=== PATIENT | female | born 1955 | race Caucasian/White ===

== ENCOUNTER → 2017-04-20 | Outpatient (CLI) | payer MEDICARE, OTHER ==
[2017-04-20 08:05] LABS: Basophils % (A) 1 %; CH 31.8; CHCM 33.8; Eosinophils # (A) 0.1 k/uL (0-0.7); Eosinophils % (A) 3 %; HCT 38.7 % (34.0-46.0); HDW 2.42; HGB 13.3 gm/dL (11.4-16.0); Luc # (Auto) 0.08; Luc % (Auto) 3; Lymphocytes # (A) 1.3 k/uL (1.0-4.8); Lymphocytes % (A) 41 %; MCH 32.3 pg (25.0-35.0); MCHC 34.3 g/dL (31.0-37.0); MCV 94.3 fL (80.0-100.0); Mean Platelet Volume 7.3; Monocytes # (A) 0.2 k/uL (0-1.0); Monocytes % (A) 5 %; Neutrophils # (A) 1.5 k/uL (1.3-7.7); Neutrophils % (A) 48 %; WBC 3.2 k/uL (3.8-10.6); WBC (Perox) 3.37
== END | disposition home or self-care (01) ==
LOC: LABWHC1 07:30
PROVIDERS: ATTEND Physician Assistant
DX: R79.89 Other specified abnormal findings of blood chemistry (principal)
CPT/HCPCS: 36415; 85025

== ENCOUNTER → 2017-10-25 | Outpatient (CLI) | payer MEDICARE, OTHER ==
[2017-10-25 09:05] LABS: Basophils % (A) 1 %; CH 31.1; CHCM 33.4; Eosinophils # (A) 0.1 k/uL (0-0.7); Eosinophils % (A) 3 %; HCT 40.7 % (34.0-46.0); HDW 2.49; HGB 13.4 gm/dL (11.4-16.0); Luc % (Auto) 3; Lymphocytes # (A) 1.4 k/uL (1.0-4.8); Lymphocytes % (A) 44 %; MCH 30.8 pg (25.0-35.0); MCHC 32.9 g/dL (31.0-37.0); MCV 93.6 fL (80.0-100.0); Mean Platelet Volume 7.1; Monocytes # (A) 0.2 k/uL (0-1.0); Monocytes % (A) 5 %; Neutrophils # (A) 1.4 k/uL (1.3-7.7); Neutrophils % (A) 43 %; RBC 4.35 m/uL (3.80-5.40); RDW 12.3 % (11.5-15.5); WBC 3.2 k/uL (3.8-10.6); WBC (Perox) 2.99
--- NOTE | 2017-10-25 09:16 | XR ---
EXAMINATION TYPE: XR chest 2V DATE OF EXAM: 10/25/2017 COMPARISON: 08/07/2016 TECHNIQUE: PA and lateral views submitted. HISTORY: Cough FINDINGS: The lungs are clear and there is no pneumothorax, pleural effusion, or focal pneumonia. Postsurgical change overlying the cervical spine and lumbar spine. Arthropathy of the shoulders. IMPRESSION: 1. No acute process.
[2017-10-25 09:22] LABS: ALT 31 U/L (9-52); AST 21 U/L (14-36); Alkaline Phosphatase 76 U/L (38-126); Anion Gap 7 mmol/L; Blood Urea Nitrogen 11 mg/dL (7-17); Calcium 9.5 mg/dL (8.4-10.2); Carbon Dioxide 30 mmol/L (22-30); Chloride 102 mmol/L (98-107); Cholesterol 239 mg/dL (<200); Glucose 94 mg/dL (74-99); HDL Cholesterol 64 mg/dL (40-60); Non-African American GFR(MDRD) >60 (>60 ml/min/1.73 sqM); Potassium 4.6 mmol/L (3.5-5.1); Sodium 139 mmol/L (137-145); Total Bilirubin 0.4 mg/dL (0.2-1.3)
== END | disposition home or self-care (01) ==
LOC: LABWHC1 08:27
PROVIDERS: ATTEND Physician Assistant
DX: R05 Cough (principal); E78.5 Hyperlipidemia, unspecified; Z79.899 Other long term (current) drug therapy
CPT/HCPCS: 36415; 71020; 80053; 80061; 85025

== ENCOUNTER → 2018-02-15 | Outpatient (CLI) | payer MEDICARE, OTHER ==
[2018-02-15 10:26] LABS: Basophils % (A) 1 %; Eosinophils # (A) 0.1 k/uL (0-0.7); Eosinophils % (A) 2 %; HCT 40.1 % (34.0-46.0); Lymphocytes # (A) 1.6 k/uL (1.0-4.8); Lymphocytes % (A) 33 %; MCH 29.8 pg (25.0-35.0); MCHC 32.5 g/dL (31.0-37.0); MCV 91.5 fL (80.0-100.0); Mean Platelet Volume 7.6; Monocytes # (A) 0.2 k/uL (0-1.0); Monocytes % (A) 5 %; Neutrophils # (A) 2.7 k/uL (1.3-7.7); Neutrophils % (A) 58 %; Platelet Count 255 k/uL (150-450); RBC 4.38 m/uL (3.80-5.40); RDW 12.7 % (11.5-15.5); WBC 4.7 k/uL (3.8-10.6)
== END | disposition home or self-care (01) ==
LOC: LABWHC1 10:15
PROVIDERS: ATTEND Physician Assistant
DX: D72.9 Disorder of white blood cells, unspecified (principal)
CPT/HCPCS: 36415; 85025

== ENCOUNTER 2018-03-20 20:18 | Emergency (ER) | payer MEDICARE, OTHER ==
[2018-03-20 20:41] VITALS: RESP 18
[2018-03-20] MEDS ORDERED: DIPH,PERTUS(ACELL)TETVAC-LF 0.5 ML VIAL IM ONE (20:41)
--- NOTE | 2018-03-20 20:59 | ED ---
General Adult HPI - General Chief complaint: Extremity Injury, Upper Stated complaint: Arm injury Time Seen by Provider: 03/20/18 20:43 Source: patient, RN notes reviewed Mode of arrival: ambulatory Limitations: no limitations - History of Present Illness Initial comments: 62-year-old female presents to the emergency department for a chief complaint of right arm injury 1 hour. Patient states she was walking her dog when she fell and her dog pulled her. Patient has a large georgian sherpherd. Patient states she fell on her right side and scraped her right arm. Patient complains of pain in the right hip. Patient also complains of pain in the right arm. Patient denies hitting her head or losing consciousness. Patient's tetanus is not up-to-date. Patient denies any other injuries at this time. Patient has no other complaints at this time including shortness of breath, chest pain, abdominal pain, nausea or vomiting, headache, or visual changes. - Related Data Home Medications Medication Instructions Recorded Confirmed traZODone HCL 150 mg PO HS 03/08/16 08/16/16 FLUoxetine HCL [PROzac] 20 mg PO DAILY 08/10/16 08/16/16 Glucosam/Luis Daniel-Msm1/C/Mani/Bosw 1 tab PO BID 08/10/16 08/16/16 [Glucosamine-Chondroitin Tablet] Hydrocodone/Acetaminophen 1 - 2 tab PO Q6H PRN 08/16/16 08/16/16 [Hydrocodon-Acetaminoph 7.5-325] Previous Rx's Medication Instructions Recorded Docusate [Colace] 100 mg PO BID #60 capsule 08/19/16 HYDROcodone/APAP 7.5-325MG [[place] 1 - 2 each PO Q6HR PRN #90 tab 08/19/16 7.5-325] hydrOXYzine PAMOATE [Vistaril] 25 mg PO TID PRN #60 cap 08/19/16 Cephalexin [Keflex] 500 mg PO Q12HR #20 cap 03/20/18 Cephalexin [Keflex] 500 mg PO Q12HR #20 cap 03/20/18 HYDROcodone/APAP 5-325MG [[place] 1 tab PO Q6HR PRN #10 tab 03/20/18 5-325] Ibuprofen [Motrin] 600 mg PO Q8HR PRN #20 tab 03/20/18 Allergies Allergy/AdvReac Type Severity Reaction Status Date / Time No Known Allergies Allergy Verified 03/20/18 20:38 Review of Systems ROS Statement: Those systems with pertinent positive or pertinent negative responses have been documented in the HPI. ROS Other: All systems not noted in ROS Statement are negative. Past Medical History Past Medical History: Fibromyalgia, Hyperlipidemia, Hypertension, Osteoarthritis (OA) Additional Past Medical History / Comment(s): Spinal stenosis, lumbar radiculopathy, constant nerve pain in back History of Any Multi-Drug Resistant Organisms: None Reported Past Surgical History: Back Surgery, Hysterectomy, Joint Replacement, Orthopedic Surgery, Tonsillectomy, Tubal Ligation Additional Past Surgical History / Comment(s): 08/16/16 posterior lumbar decompression fusion transforaminal lumbar interbody dusion L2-3 and removal hardware L3-4. Other surgical hx: arthroscopy left knee x2, cervical fusion with plate, back sx x2, left knee replacement Past Anesthesia/Blood Transfusion Reactions: No Reported Reaction Additional Past Anesthesia/Blood Transfusion Reaction / Comment(s): jehovah witness-NO BLOOD PRODUCTS. Past Psychological History: Bipolar Smoking Status: Never smoker Past Alcohol Use History: None Reported Past Drug Use History: None Reported - Past Family History Mother Family Medical History: No Reported History General Exam - General Exam Comments Initial Comments: Right arm exam: Patient has a full range of motion of the right arm including the right wrist and right elbow. Patient has tenderness of the medial forearm. Radial pulse 2+ and capillary refill less than 10 seconds. Patient has full strength in the right hand and full abduction and adduction of the digits of the right hand. Sensation intact in the right upper extremity. Right leg exam. Pedal pulse 2+ and capillary refill less than 2 seconds. Sensation intact in the right foot. Patient has limited range of motion of the right hip. Full range of motion of the right knee and ankle. Patient does have some tenderness of the right hip as well. Limitations: no limitations General appearance: alert, in no apparent distress Respiratory exam: Present: normal lung sounds bilaterally. Absent: respiratory distress, wheezes, rales, rhonchi, stridor Cardiovascular Exam: Present: regular rate, normal rhythm, normal heart sounds. Absent: systolic murmur, diastolic murmur, rubs, gallop, clicks Course Vital Signs 03/20/18 03/20/18 20:38 23:18 Temperature 98.1 F 98.2 F Pulse Rate 80 62 Respiratory 18 18 Rate Blood Pressure 164/92 145/86 O2 Sat by Pulse 98 97 Oximetry Procedures - Procedures Initial comment: Body area: Right forearm Laceration length: 6 cm Foreign bodies: Patient had gravel within the tissue. Wound was irrigated thoroughly and cleaned out. Tendon involvement: none Nerve involvement: none Vascular damage: no Anesthesia: local infiltration Local anesthetic: 12 mL 1% lidocaine Preparation: Patient was prepped and draped in the usual sterile fashion. Irrigation solution: saline Irrigation method:saline jet lavage, iodine Skin closure:4-0 Ethilon using sterile technique Number of sutures: 13 Technique: interupted Dressing: antibiotic ointment/ gauze Patient tolerance: Patient tolerated the procedure well with no immediate complications. Medical Decision Making - Medical Decision Making 62-year-old female presents to the emergency department for a chief complaint of right arm pain. Patient states she fell while walking the dog on a gravel road and the dog pulled her. She states she has pain in her right hip and right arm. Patient states it has been painful to walk with her right hip. Patient is not up-to-date on her tetanus. On exam there is a 6 cm laceration along the medial aspect of her right forearm through SQ tissue. There is no acute fracture or dislocation in the right forearm. Multiple radiopaque soft tissue foreign bodies seen. X-ray of the right hip shows no acute fracture or dislocation. Multiple radiopaque soft tissue densities noted. Upon examining of the hip there are gravel densities on the surface of the skin. There is no break in the skin to allow for foreign bodies. Wound was thoroughly irrigated with saline jet lavage and cleaned with iodine. All foreign bodies that could be removed were. Wound was sutured with 13 simple interrupted sutures. Patient was educated to return to the emergency department in 7-10 days to have sutures removed. Patient was also visualized walking on the right hip. Patient was given a tetanus shot in the emergency department. She will follow up with general surgery for possible debridement. She was educated that she needs to watch closely for infection and take Keflex as directed. She will return to the emergency Department if she has any worsening symptoms or signs of infection. Disposition Clinical Impression: Laceration Disposition: HOME SELF-CARE Condition: Good Instructions: Care For Your Stitches (ED), Laceration (ED), Soft Tissue Foreign Body (ED) Additional Instructions: Please take antibiotics as directed. Please take Motrin for pain relief. If pain is severe take [place]. Return to the emergency department if you have any worsening symptoms. Otherwise follow-up with Gen. surgery in 1-2 days. Prescriptions: Cephalexin [Keflex] 500 mg PO Q12HR #20 cap Cephalexin [Keflex] 500 mg PO Q12HR #20 cap HYDROcodone/APAP 5-325MG [[place] 5-325] 1 tab PO Q6HR PRN #10 tab PRN Reason: Pain Ibuprofen [Motrin] 600 mg PO Q8HR PRN #20 tab PRN Reason: Pain Is patient prescribed a controlled substance at d/c from ED?: Yes Referrals: Igor Solis MD [Primary Care Provider] - 1-2 days Debra Paz MD [STAFF PHYSICIAN] - 1-2 days Time of Disposition: 22:57
--- NOTE | 2018-03-20 21:10 | XR ---
EXAMINATION TYPE: XR Hip Complete RT DATE OF EXAM: 03/20/2018 CLINICAL HISTORY: pain TECHNIQUE: AP and frogleg views of the right hip are obtained. COMPARISON: None. FINDINGS: There is no acute fracture/dislocation evident. The joint space appears severely narrowe d. The acetabular lip spurring noted. Subchondral cyst formation evident. Local thickening along the femoral neck may reflect a healed fracture.. Multiple radiopaque soft tissue densities noted reflect soft tissue foreign bodies. Correlate clinically. IMPRESSION: 1. There is no acute fracture or dislocation. 2.Multiple radiopaque soft tissue densities noted reflect soft tissue foreign bodies. Correlate clini roberta. ICD 10 NO FRACTURE, INITIAL EVALUATION
--- NOTE | 2018-03-20 21:18 | XR ---
EXAMINATION TYPE: XR forearm RT DATE OF EXAM: 03/20/2018 CLINICAL HISTORY: pain TECHNIQUE: Frontal and lateral images of the right forearm are obtained. COMPARISON: None. FINDINGS: There is no acute fracture/dislocation evident. The joint spaces appear within normal limi ts. Multiple radiopaque soft tissue foreign bodys seen which may reflect soft tissue gravel. Correlat e clinically. IMPRESSION: There is no acute fracture or dislocation. ICD 10 NO FRACTURE, INITIAL EVALUATION
[2018-03-20] MEDS ORDERED: HYDROcodone/APAP 5-325MG 1 EACH TAB PO STA (22:08)
[2018-03-20] MEDS ORDERED: CEPHALEXIN 500 MG CAP PO STA (23:10)
[2018-03-20 23:19] VITALS: BP 145/86; PULSE 62; TEMP 98.2
== END 2018-03-20 23:19 | disposition home or self-care (01) ==
LOC: EC 20:18
DX: S51.821A Laceration with foreign body of right forearm, initial encounter (principal); L98.9 Disorder of the skin and subcutaneous tissue, unspecified; M25.551 Pain in right hip; F31.9 Bipolar disorder, unspecified; Z79.899 Other long term (current) drug therapy; Z23 Encounter for immunization; W54.1XXA Struck by dog, initial encounter; Y93.K1 Activity, walking an animal
CPT/HCPCS: 12032; 73502; 90471; 90715; 99283

== ENCOUNTER 2018-03-23 20:58 | Emergency (ER) | payer MEDICARE, OTHER ==
[2018-03-23 21:42] VITALS: RESP 18
[2018-03-24] MEDS ORDERED: traMADol 50 MG TAB PO STA (00:36)
[2018-03-24] MEDS ORDERED: VANCOMYCIN IV PER PHARMACY 1 EACH MISC MISCELLANE PRN (00:50)
[2018-03-24] MEDS ORDERED: VANCOMYCIN 1,250 MG in SODIUM CHLORIDE 0.9% 250 ML IVPB STA (00:52)
[2018-03-24 01:05] LABS: Basophils % (A) 1 %; Eosinophils # (A) 0.1 k/uL (0-0.7); Eosinophils % (A) 3 %; HCT 35.8 % (34.0-46.0); HGB 12.2 gm/dL (11.4-16.0); Lymphocytes # (A) 1.5 k/uL (1.0-4.8); Lymphocytes % (A) 36 %; MCH 30.4 pg (25.0-35.0); MCHC 34.1 g/dL (31.0-37.0); MCV 89.4 fL (80.0-100.0); Mean Platelet Volume 7.3; Monocytes # (A) 0.3 k/uL (0-1.0); Monocytes % (A) 6 %; Neutrophils # (A) 2.1 k/uL (1.3-7.7); Neutrophils % (A) 51 %; Platelet Count 187 k/uL (150-450); RBC 4.01 m/uL (3.80-5.40); RDW 12.3 % (11.5-15.5); WBC 4.1 k/uL (3.8-10.6)
[2018-03-24 01:16] LABS: ALT 23 U/L (9-52); AST 22 U/L (14-36); Alkaline Phosphatase 79 U/L (38-126); Anion Gap 10 mmol/L; Blood Urea Nitrogen 9 mg/dL (7-17); Calcium 9.3 mg/dL (8.4-10.2); Carbon Dioxide 30 mmol/L (22-30); Chloride 98 mmol/L (98-107); Glucose 99 mg/dL (74-99); Sodium 138 mmol/L (137-145); Total Bilirubin 0.5 mg/dL (0.2-1.3); Total Protein 6.5 g/dL (6.3-8.2)
--- NOTE | 2018-03-24 02:02 | ED ---
Wound/Laceration HPI - General Chief Complaint: Wound/Laceration Stated Complaint: arm swelling & redness Time Seen by Provider: 03/24/18 00:04 Source: patient Mode of arrival: ambulatory Limitations: no limitations - History of Present Illness Initial Comments: 62-year-old female patient presents to the emergency department today for possible wound infection. Patient states that she explains a fall last Sunday did have a laceration to the right forearm. Patient states she was seen here and did have the laceration repaired. Patient states that she was started on Keflex and has been taking this. Patient states she is taking 3 full days worth. States that today she noticed she has been having some drainage of pus and surrounding redness to the laceration. States that she did see Dr. Cole and he plans to do a surgery for wound clean out on Sunday. Patient denies any fevers, but states she has been having chills. Denies any nausea or vomiting. Patient denies any recent rash, shortness breath, chest pain , abdominal pain, diarrhea, constipation, back pain, numbness, tingling, dizziness, weakness, hematuria, dysuria, urinary urgency, urinary frequency, headache, visual changes, or any other complaints. - Related Data Home Medications Medication Instructions Recorded Confirmed traZODone HCL 150 mg PO HS 03/08/16 08/16/16 FLUoxetine HCL [PROzac] 20 mg PO DAILY 08/10/16 08/16/16 Glucosam/Luis Daniel-Msm1/C/Mani/Bosw 1 tab PO BID 08/10/16 08/16/16 [Glucosamine-Chondroitin Tablet] Hydrocodone/Acetaminophen 1 - 2 tab PO Q6H PRN 08/16/16 08/16/16 [Hydrocodon-Acetaminoph 7.5-325] Previous Rx's Medication Instructions Recorded Docusate [Colace] 100 mg PO BID #60 capsule 08/19/16 HYDROcodone/APAP 7.5-325MG [[place] 1 - 2 each PO Q6HR PRN #90 tab 08/19/16 7.5-325] hydrOXYzine PAMOATE [Vistaril] 25 mg PO TID PRN #60 cap 08/19/16 Cephalexin [Keflex] 500 mg PO Q12HR #20 cap 03/20/18 Cephalexin [Keflex] 500 mg PO Q12HR #20 cap 03/20/18 HYDROcodone/APAP 5-325MG [[place] 1 tab PO Q6HR PRN #10 tab 03/20/18 5-325] Ibuprofen [Motrin] 600 mg PO Q8HR PRN #20 tab 03/20/18 Levofloxacin [Levaquin] 500 mg PO DAILY #10 tab 03/24/18 Allergies Allergy/AdvReac Type Severity Reaction Status Date / Time No Known Allergies Allergy Verified 03/23/18 21:42 Review of Systems ROS Statement: Those systems with pertinent positive or pertinent negative responses have been documented in the HPI. ROS Other: All systems not noted in ROS Statement are negative. Past Medical History Past Medical History: Fibromyalgia, Hyperlipidemia, Hypertension, Osteoarthritis (OA) Additional Past Medical History / Comment(s): Spinal stenosis, lumbar radiculopathy, constant nerve pain in back History of Any Multi-Drug Resistant Organisms: None Reported Past Surgical History: Back Surgery, Hysterectomy, Joint Replacement, Orthopedic Surgery, Tonsillectomy, Tubal Ligation Additional Past Surgical History / Comment(s): 08/16/16 posterior lumbar decompression fusion transforaminal lumbar interbody dusion L2-3 and removal hardware L3-4. Other surgical hx: arthroscopy left knee x2, cervical fusion with plate, back sx x2, left knee replacement Past Anesthesia/Blood Transfusion Reactions: No Reported Reaction Additional Past Anesthesia/Blood Transfusion Reaction / Comment(s): jehovah witness-NO BLOOD PRODUCTS. Past Psychological History: Bipolar Smoking Status: Never smoker Past Alcohol Use History: None Reported Past Drug Use History: None Reported - Past Family History Mother Family Medical History: No Reported History General Exam Limitations: no limitations General appearance: alert, in no apparent distress, other (This is a well- developed, well-nourished adult female patient in no acute distress. Vital signs upon presentation are temperature 99.2F, pulse 75, respirations 18, blood pressure 124/74, pulse ox 93% on room air.) Eye exam: Present: normal appearance, PERRL, EOMI. Absent: scleral icterus, conjunctival injection, periorbital swelling ENT exam: Present: normal exam, normal oropharynx, mucous membranes moist Respiratory exam: Present: normal lung sounds bilaterally. Absent: respiratory distress, wheezes, rales, rhonchi, stridor Cardiovascular Exam: Present: regular rate, normal rhythm, normal heart sounds. Absent: systolic murmur, diastolic murmur, rubs, gallop, clicks Extremities exam: Present: full ROM, normal capillary refill, other (Patient has 8 cm laceration to the right forearm. This is well approximated with sutures. Patient does have evidence of purulent drainage and surrounding erythema. She has no axillary lymphadenopathy. Wound is warm to touch.). Absent: normal inspection, tenderness, pedal edema, joint swelling, calf tenderness Neurological exam: Present: alert, oriented X3, CN II-XII intact Psychiatric exam: Present: normal affect, normal mood Skin exam: Present: warm, dry, intact, normal color. Absent: rash Course Vital Signs 03/23/18 03/24/18 21:39 03:30 Temperature 99.0 F 98.9 F Pulse Rate 75 65 Respiratory 18 18 Rate Blood Pressure 124/74 127/80 O2 Sat by Pulse 93 L 97 Oximetry Medical Decision Making - Medical Decision Making 62-year-old female patient presented to the emergency department today for evaluation of infected right arm laceration. Physical examination did reveal purulent drainage with surrounding cellulitis. Labs reviewed and were unremarkable. White blood cell count was normal. Patient had been taking Keflex for 3 days. Patient was given a dose of IV vancomycin here in the department. She will be discharged home we will change her Keflex to Levaquin. Upon completion of the vancomycin patient had scalp itching. We did administer 50 mg of Benadryl IM, 125 mg of site Medrol IM, and 20 mg of Pepcid by mouth. Patient did have improvement of symptoms prior to discharge. She denied any trouble breathing, throat swelling, or other symptoms. No evidence of rash. She is instructed to follow-up with her primary care physician as well as Dr. Cole for further evaluation of the wound. Return parameters were discussed in detail. She verbalizes understanding and agrees with this plan. - Lab Data Result diagrams: 03/24/18 00:47 03/24/18 00:47 Lab Results 03/24/18 03/24/18 Range/Units 00:47 00:47 WBC 4.1 (3.8-10.6) k/uL RBC 4.01 (3.80-5.40) m/uL Hgb 12.2 (11.4-16.0) gm/dL Hct 35.8 (34.0-46.0) % MCV 89.4 (80.0-100.0) fL MCH 30.4 (25.0-35.0) pg MCHC 34.1 (31.0-37.0) g/dL RDW 12.3 (11.5-15.5) % Plt Count 187 (150-450) k/uL Neutrophils % 51 % Lymphocytes % 36 % Monocytes % 6 % Eosinophils % 3 % Basophils % 1 % Neutrophils # 2.1 (1.3-7.7) k/uL Lymphocytes # 1.5 (1.0-4.8) k/uL Monocytes # 0.3 (0-1.0) k/uL Eosinophils # 0.1 (0-0.7) k/uL Basophils # 0.0 (0-0.2) k/uL Sodium 138 (137-145) mmol/L Potassium 4.0 (3.5-5.1) mmol/L Chloride 98 (98-107) mmol/L Carbon Dioxide 30 (22-30) mmol/L Anion Gap 10 mmol/L BUN 9 (7-17) mg/dL Creatinine 0.60 (0.52-1.04) mg/dL Est GFR (CKD-EPI)AfAm >90 (>60 ml/min/1.73 sqM) Est GFR (CKD-EPI)NonAf >90 (>60 ml/min/1.73 sqM) Glucose 99 (74-99) mg/dL Calcium 9.3 (8.4-10.2) mg/dL Total Bilirubin 0.5 (0.2-1.3) mg/dL AST 22 (14-36) U/L ALT 23 (9-52) U/L Alkaline Phosphatase 79 (38-126) U/L Total Protein 6.5 (6.3-8.2) g/dL Albumin 4.0 (3.5-5.0) g/dL Disposition Clinical Impression: Cellulitis, Wound infection Disposition: HOME SELF-CARE Condition: Good Instructions: Care For Your Stitches (ED), Wound Infection (ED) Additional Instructions: Take medications as directed. Follow-up with your primary care physician and orthopedic physician as soon as possible. Return here immediately for any new, worsening, or concerning symptoms. Prescriptions: Levofloxacin [Levaquin] 500 mg PO DAILY #10 tab Is patient prescribed a controlled substance at d/c from ED?: No Referrals: Igor Solis MD [Primary Care Provider] - 1-2 days Time of Disposition: 02:30
[2018-03-24] MEDS ORDERED: FAMOTIDINE 20 MG TAB PO STA (03:20)
[2018-03-24] MEDS ORDERED: diphenhydrAMINE 50 MG/ML 1 ML VIAL IM STA (03:20)
[2018-03-24] MEDS: methylPREDNISolone SOD SUCCI 125 MG/2 ML VIAL IM ONE ×2 (03:25→03:27)
[2018-03-24 03:31] VITALS: BP 127/80; PULSE 65; TEMP 98.9
== END 2018-03-24 03:50 | disposition home or self-care (01) ==
LOC: EC 20:58
DX: L03.113 Cellulitis of right upper limb (principal); T81.4XXA Infection following a procedure, initial encounter; B99.8 Other infectious disease; F31.9 Bipolar disorder, unspecified; Z79.899 Other long term (current) drug therapy; Z87.39 Personal history of other diseases of the musculoskeletal system and connective tissue
CPT/HCPCS: 36415; 80053; 85025; 87040; 87070; 87205; 99283; 96365; 96366; 96372 ×2; J3370; J1200; J2930

== ENCOUNTER → 2018-07-23 | Outpatient (CLI) | payer MEDICARE, OTHER ==
--- NOTE | 2018-07-23 11:50 | XR ---
EXAMINATION TYPE: XR cervical spine limited DATE OF EXAM: 07/23/2018 COMPARISON: NONE HISTORY: Pain TECHNIQUE: 3 views are submitted. FINDINGS: There are no compression deformities. The prevertebral soft tissue structures are within normal limi ts. Postsurgical changes are seen involving the lower cervical spine. Complete loss of disc space an d hypertrophic spurring anteriorly at C3-4 and C4-C5. Facet arthropathy at all levels. Suspect neural foraminal encroachment at all levels. 2 mm anterolisthesis of C2 on C3. Odontoid view nondiagnostic. Odontoid appears intact on the lateral view. IMPRESSION: 1. Postsurgical change with multilevel severe degenerative disc disease and facet arthropathy and hyp ertrophic spurring suspected bilateral foraminal encroachment at multiple levels correlate clinically .
--- NOTE | 2018-07-23 11:51 | XR ---
EXAM TYPE: LUMBAR SPINE X RAY SERIES COMPARISON: 08/16/2016 HISTORY: Pain TECHNIQUE: 3 views are submitted. FINDINGS: There is postsurgical changes involving levels L3-S1. Alignment is near-anatomic. No compression defo rmities. Degenerative disc disease at T12-L1. IMPRESSION: 1. Multilevel postsurgical change appears in near anatomic alignment. 2. Degenerative disc disease thoracolumbar junction.
--- NOTE | 2018-07-23 11:53 | XR ---
EXAMINATION TYPE: XR pelvis AP view DATE OF EXAM: 07/23/2018 COMPARISON: NONE HISTORY: Pain Postsurgical change involving the lower lumbar spine and severe arthropathy of the right hip. Chronic appearing deformity of the right inferior pubic ramus suggestive previous trauma. This was not prese nt on 03/20/2018 x-ray of the right hip. Arthropathy of the left hip noted. IMPRESSION: 1. There is sclerosis and deformity involving the right inferior pubic ramus new from the x-ray 018. Most likely posttraumatic on a remote basis. Correlate clinically and if necessary with CT scan. 2. Severe arthropathy of the right hip with complete loss of joint space. 3. Moderate to severe arthropathy of the left hip
== END | disposition home or self-care (01) ==
LOC: RADXRMAIN 11:04
PROVIDERS: ATTEND Chiropractor
DX: M51.36 Other intervertebral disc degeneration, lumbar region (principal); M16.12 Unilateral primary osteoarthritis, left hip; M89.8X8 Other specified disorders of bone, other site; M95.5 Acquired deformity of pelvis; M99.01 Segmental and somatic dysfunction of cervical region; Z98.890 Other specified postprocedural states
CPT/HCPCS: 72040; 72100; 72170

== ENCOUNTER → 2018-09-05 | Outpatient (CLI) | payer MEDICARE, OTHER ==
--- NOTE | 2018-09-05 15:55 | US ---
EXAMINATION TYPE: US thyroid st tissue head/neck DATE OF EXAM: 09/05/2018 COMPARISON: NONE CLINICAL HISTORY: E05.90 HYPERTHYROIDISM. GLAND SIZE: Right Lobe: 3.7 x 1.1 x 1.6 cm Overall Parenchyma: homogenous Left Lobe: 4.6 x 1.2 x 1.6 cm Overall Parenchyma: homogeneous Isthmus Thickness: 0.2 cm NODULES RIGHT: # of nodules measured on right: 1 1. 0.6 X 0.3 x 0.5 cm mixed nodule at the mid pole with well-defined margins; . This nodule is wid er than tall and shows intranodular vascularity. Prior size: no prior LEFT: # of nodules measured on left: 0 esophagus demonstrated incidentally ISTHMUS: # of nodules measured in the isthmus: 0 Bilateral neck scanned, no evidence of lymphadenopathy. IMPRESSION: Subcentimeter thyroid nodule.
== END | disposition home or self-care (01) ==
LOC: RADUSWWP 14:47
PROVIDERS: ATTEND Family Medicine
DX: E04.1 Nontoxic single thyroid nodule (principal); E05.90 Thyrotoxicosis, unspecified without thyrotoxic crisis or storm
CPT/HCPCS: 76536

== ENCOUNTER → 2019-01-16 | Outpatient (CLI) | payer MEDICARE, OTHER ==
[2019-01-16 17:39] LABS: Thyroid Peroxidase Antibodies 29.2 U/mL (0.0-60.0)
[2019-01-16 17:47] LABS: T4, Free (Free Thyroxine) 1.2 ng/dL (0.80-1.80)
== END | disposition home or self-care (01) ==
LOC: LABWHC1 09:16
PROVIDERS: ATTEND Internal Medicine Endocrinology, Diabetes & Metabolism
DX: R94.6 Abnormal results of thyroid function studies (principal)
CPT/HCPCS: 36415; 84439; 84443; 84445; 84480; 86376

== ENCOUNTER 2019-04-28 11:34 | Inpatient (IN) | payer MEDICARE, OTHER ==
[2019-04-22 12:47] VITALS: BMI 27.5
[~2019-04-28 11:34] MED LIST: ACETAMINOPHEN TAB 500 MG TAB PO ONE; DEXAMETHASONE SOD PHOSPHATE 10 MG/ML 1 ML VIAL IV ONE; LIDOCAINE 1% 20 ML VIAL (10MG/ML) FOR IV START INTRADERMA PRN; MELOXICAM 7.5 MG TAB PO ONE; MIDAZOLAM 2 MG/2 ML VIAL IV PRN; ONDANSETRON 4 MG/2 ML VIAL IVP ONE; TRANEXAMIC ACID 1,000 MG in SODIUM CHLORIDE 0.9% 100 ML IVPB ONE; ceFAZolin IN SWFI 2 GM/20 ML SYRINGE IVP ONE
[2019-04-28] MEDS ORDERED: LIDOCAINE 1% 20 ML VIAL (10MG/ML) FOR IV START INTRADERMA ONE (11:55)
[2019-04-28] MEDS: LACTATED RINGERS 1,000 ML IV SCH ×2 (12:11→16:57)
[2019-04-28] MEDS ORDERED: ROPIVACAINE 246.25 MG, EPINEPHrine 0.5 MG, KETOROLAC 30 MG, cloNIDine HCL/PF 80 MCG, WA... MISCELLANE ONE ×5 (12:21)
[2019-04-28] MEDS ORDERED: MIDAZOLAM 2 MG/2 ML VIAL ONE (12:24)
[2019-04-28] MEDS ORDERED: GLYCOPYRROLATE 0.2 MG/ML 2 ML VIAL ONE (12:24)
[2019-04-28] MEDS ORDERED: SODIUM CHLORIDE 0.9% 100 ML BAG ONE (12:24)
[2019-04-28] MEDS ORDERED: PROPOFOL 10 MG/ML 20 ML VIAL IV ONE (12:24)
[2019-04-28] MEDS ORDERED: fentaNYL (PF) 50 MCG/ML 2 ML AMP ONE (12:24)
[2019-04-28] MEDS ORDERED: LIDOCAINE 1% INJ 10MG/ML (20 ML MDV) ONE (12:24)
[2019-04-28] MEDS ORDERED: TRANEXAMIC ACID 1,000 MG/10 ML VIAL ONE (12:24)
[2019-04-28] MEDS ORDERED: NEOSTIGMINE 1 MG/ML 10 ML VIAL ONE (12:24)
[2019-04-28] MEDS ORDERED: PHENYLEPHRINE-0.9% NACL SYG 1 MG/10 ML SYRINGE ONE (12:24)
[2019-04-28] MEDS ORDERED: SUCCINYLCHOLINE CHLORIDE 100 MG/5 ML SYR IV ONE (12:24)
[2019-04-28] MEDS ORDERED: ROCURONIUM BROMIDE 10 MG/ML 10 ML VIAL IV ONE (12:24)
[2019-04-28] MEDS ORDERED: ceFAZolin 3,000 MG in SODIUM CHLORIDE 0.9% IRRIGATIO 3,000 ML IRRIGATION ONE (12:30)
[2019-04-28] MEDS ORDERED: THROMBIN (BOVINE) 5,000 UNIT VIAL TOPICAL ONE (13:40)
[2019-04-28] MEDS ORDERED: GELATIN SPONGE,ABSORB (SMALL) 1 EACH SPONGE TOPICAL ONE ×2 (13:40)
[2019-04-28] MEDS ORDERED: SODIUM CHLORIDE 0.9% IVPB ONE (13:45)
[2019-04-28] MEDS ORDERED: TRANEXAMIC ACID IVPB ONE (13:45)
[2019-04-28] MEDS ORDERED: TRANEXAMIC ACID 1,000 MG in SODIUM CHLORIDE 0.9% 100 ML IVPB ONE (13:45)
[2019-04-28] MEDS ORDERED: TRANEXAMIC ACID 1,000 MG/10 ML VIAL IRRIGATION ONE (14:05)
[2019-04-28] MEDS ORDERED: LACTATED RINGERS 1,000 ML IV ONE (14:32)
--- NOTE | 2019-04-28 14:53 | P.OP ---
Date of Procedure: 04/28/19 Procedure(s) Performed: PREOPERATIVE DIAGNOSIS: Right hip severe osteoarthritis POSTOPERATIVE DIAGNOSIS: Right hip severe osteoarthritis OPERATION: Right hip total replacement arthroplasty (uncemented implantation with ceramic on polyethylene articulation). ANESTHESIA: Spinal ESTIMATED BLOOD LOSS: 800 ml. HEAD SHIPPER: Alfreda May PA-C (assistance with: patient positioning, retraction, exposure, hemostasis, leg positioning, implantation, irrigation, closure, dressing) COMPLICATIONS: None apparent. COMPONENTS IMPLANTED: Alin continuum acetabular cup with cluster holes; continuum longevity 15 elevated liner, 32 mm id; Alin VerSys Fiber Metal stem; Biolox ceramic 32 mm femoral head with no neck length extension INDICATIONS: Stacey is a 63 year old female with significant end-stage osteoarthritis involving the right hip and commensurate severe symptoms. She is a Sabianism. She presents to the operating room today for total hip replacement. I have discussed the steps of the operation as well as potential risks and complications as being inclusive of, but not limited to: Leading, infection, scarring, discomfort, or vessel and/or nerve damage, need for further surgery, loosening, dislocation, wear, osteolysis, limb length inequality, fracture, blood clot, pulmonary embolism, , persistent limp, and other risks. The patient is aware these risks and wishes to proceed with surgery and has signed a consent form. PROCEDURE: After appropriate consent was obtained, the patient was taken to the operating room and placed in supine position. Spinal anesthetic was administered and after confirmation of adequate anesthesia, the patient was placed into the lateral decubitus position with the right side up. Care was taken to make sure that all pressure points were adequately padded and he was stabilized to the table with a [place] hip positioner. The right hip was prepped and draped in the usual aseptic fashion using a combination of ChloraPrep and alcohol. Ioban drape was used for the case and the patient received intravenous antibiotics prior to the incision. "Time out" was called, confirming patient identity, side, procedure, availability of implants and administration of antibiotics. 1 gram of IV tranexamic acid was given. The incision was created directly over the greater trochanter and carried slightly posteriorly for a posterior approach to the hip. The incision was then deepened down to subcutaneous tissue and fascia sondra. This patient had extensive vasculature in the subcutaneous tissues requiring slow meticulous hemostasis. Topical tranexamic acid was called for in anticipation of performing a wound soak at the conclusion of the case. Fascia sondra was split in line with the incision and split proximally along the fibers of the gluteus rizwan. The underlying fibers of the muscle were teased apart using finger dissection and bleeding vessels were picked up and coagulated. Retractor was then placed posteriorly consisting of a blunt Jess. The short external rotators and capsule were exposed using good visualization of the attachment of the external rotators to the femur was established. The short external rotators and capsule were released using electrocautery from their femoral attachments. Bleeding was encountered at this point in the area just proximal to the lesser trochanter. Gel-foam soaked with thrombin along with cautery and pressure was utilized to gain hemostasis. The Aquamantis device was also utilized for hemostasis. A hockey stick shaped incision was created in the capsule. Joint fluid was evacuated and the patient's hip was able to be dislocated fairly easily. Once the above procedures were completed, no further significant soft tissue bleeding was encountered for the remainder of the case. The patient's femoral head was severely arthritic with eburnated bone present and a 360 degrees mahan of osteophytes. The femoral neck cut was created approximately 1 cm superior to the lesser trochanter using a reciprocating saw. The patient's femoral canal, once exposed, bled extensively requiring bone wax to tamponade the flow and efficient placement of the femoral component after preparation of the acetabulum. The femoral head and neck fragment was removed and attention was then directed to the acetabulum. An anterior acetabular retractor was applied followed by posterior retraction of the capsule with a Meyerding retractor. This afforded good visualization into the acetabular cavity. Soft tissue was removed and residual cartilage within the acetabular vault was removed using a curette. Labrum was removed using a long-handled knife. Attention was then directed to reaming. The size 44 reamer was used first, followed by increasing increments until the final size reamer was used. Please see the implantation sheet for exact sizes used for the components. Once the final reamer had been utilized to expand the socket it was noted that there was a good supportive bone around the acetabular socket and no further reaming needed to be performed. The trial the same size as the last reamer used was then impacted into the acetabular vault and found to have good fit. The acetabular component, one size (2mm) greater than the trial was then called for. The cluster holes were placed posteriorly and the component was impacted in a position of approximately 40 degrees abduction and 20 degrees anteversion. This matched this patient's [place] anteversion and it was noted that the cup had excellent stability without need for additional screw fixation. Attention was then directed to the acetabular liner. The anteversion and abduction angle of the component was noted to be very good. A 15 elevated liner was used and locked into position with the elevation posterior superior. Osteophytes around the posterior and inferior aspect of the acetabulum were trimmed as necessary to prevent any impingement. Attention was then directed back to the proximal femur. Retractors were placed around the proximal femur and box osteotome was used followed by canal finder and trochanteric reamer. Cylindrical reaming was performed. Progressive broaching was then performed starting with a #10 broach and progressing final size, in a position of 15 degrees anteversion. [place] anteversion was within 5 degrees of stem position. The final size broach had excellent fit and fill of the patient's metaphysis and diaphysis. Trial reduction was then performed starting with size 32 mm femoral head and various neck combination of stability, limb length equality, and soft tissue tension. Trial components were then removed. The canal was lavaged and the final size femoral stem component was impacted into position. The implant fit very well and had excellent stability. The femoral head was then impacted onto the Love taper. Blood and debris were removed from the acetabular component and the hip was then reduced and checked for stability, limb length and soft tissue tension. These parameters found to be satisfactory, the wound was then thoroughly irrigated with normal saline. Final hemostasis was obtained using electrocautery and IV tranexamic acid, 1 g given at the time of prepping and draping, and another 1 g given at the time of closure. In addition, wound soak for 2 minutes with 2 grams TXA in 50 cc of saline was utilized prior to closure. Local anesthetic solution consisting of ropivacaine with epinephrine, clonidine, and ketorolac was also used throughout the case targeting the capsule, fascia, and skin. Closure of the capsule was performed meticulously using #3 Vicryl suture. Four [id number] sutures were placed in the posterior capsule along with repair of the external rotators. The fascia sondra was then repaired using combination of #3 Vicryl suture in interrupted fashion and Quill and running fashion. 2-0 Vicryl suture was used for the subcutaneous tissues and 3-0 Quill for the skin. Dermabond or Steri- Strips were then applied. The patient tolerated the procedure well. Hemo-Q performed by the reservation clerk during closure showed a hemoglobin of 10.3. There were no complications and the wound bed was dry and there was no need for drain placement. Sterile dressing was then applied and the patient was carefully removed from the operating room table, placed on the stretcher and was taken to the recovery room in stable condition. Sponge and needle counts were correct.
[2019-04-28] MEDS ORDERED: NALOXONE 0.4 MG/ML 1 ML VIAL IV PRN (15:03)
[2019-04-28] MEDS ORDERED: ONDANSETRON 4 MG/2 ML VIAL IVP PRN (15:03)
[2019-04-28] MEDS ORDERED: ACETAMINOPHEN TAB 325 MG TAB PO PRN (15:03)
[2019-04-28] MEDS ORDERED: HYDROcodone/APAP 5-325MG 1 EACH TAB PO PRN (15:03)
[2019-04-28] MEDS ORDERED: MAGNESIUM HYDROXIDE 2,400 MG/10 ML CUP PO PRN (15:03)
[2019-04-28] MEDS: fentaNYL (PF) 50 MCG/ML 2 ML AMP IV PRN ×2 (15:04→15:20)
--- NOTE | 2019-04-28 15:27 | XR ---
Limited right hip HISTORY: Status post right anterior hip replacement Single frontal view of the right hip Patient is status post right hip arthroplasty. There is anatomic alignment. Lucency is present in the soft tissues. IMPRESSION: Interval follow-up.
[2019-04-28] MEDS: HYDROcodone/APAP 5-325MG 1 EACH TAB PO PRN ×2 (16:56→22:55)
--- NOTE | 2019-04-28 17:38 | P.CONS ---
History of Present Illness - Reason for Consult Consult date: 04/28/19 Medical management Requesting physician: Tiago Cole - Chief Complaint Right hip pain - History of Present Illness 63-year-old female with no past medical history presents to [facility] for elective right total hip replacement arthroplasty for severe right hip osteoarthritis. [facility] physicians has been consulted for medical management of this patient. Patient was seen and examined. No acute events overnight. Patient reports no immediate postoperative complications. She complains of right hip pain that is 8 out of 10 in severity. Pain is aggravated with movement. Patient denies any headaches, lower extremity edema, nausea, vomiting, fever, cough, chest pain, shortness of breath, changes in appetite or weight. She denies any dizziness, numbness/weakness/tingling of the extremities. Patient states that she has not been able to urinate since her surgery. Patient has not had a bowel movement neither has she passed gas. Review of Systems Pertinent positives and negatives as discussed in HPI, a complete review of systems was performed and all other systems are negative. Past Medical History Past Medical History: Fibromyalgia, Hyperlipidemia, Hypertension, Osteoarthritis (OA) Additional Past Medical History / Comment(s): Spinal stenosis, lumbar radiculopathy, chronic back pain, hx. pelvic fx. 2018 History of Any Multi-Drug Resistant Organisms: None Reported Past Surgical History: Back Surgery, Hysterectomy, Joint Replacement, Orthopedic Surgery, Tonsillectomy, Tubal Ligation Additional Past Surgical History / Comment(s): 08/16/16 posterior lumbar decompression fusion transforaminal lumbar interbody dusion L2-3 and removal hardware L3-4. Other surgical hx: arthroscopy left knee x2, cervical fusion with plate, back sx x2, right foot surg., left knee replacement Past Anesthesia/Blood Transfusion Reactions: No Reported Reaction Additional Past Anesthesia/Blood Transfusion Reaction / Comm: jehovah witness-NO BLOOD PRODUCTS. Past Psychological History: Bipolar Additional Psychological History / Comment(s): Pt resides with her zainab. She uses no assistive device. She drives. Smoking Status: Never smoker Past Alcohol Use History: Occasional Past Drug Use History: None Reported - Past Family History Mother Family Medical History: No Reported History Medications and Allergies Home Medications Medication Instructions Recorded Confirmed Type Acetaminophen/Diphenhydramine 500 mg PO Q8HR PRN 04/28/19 04/28/19 History [Tylenol PM Extra Strength] Aspirin 325 mg PO DAILY #1 tab 04/28/19 Rx HYDROcodone/APAP 5-325MG [[place] 1 - 2 each PO Q4-6H PRN #50 tab 04/28/19 Rx 5-325] Ibuprofen [Motrin] 800 mg PO TID PRN 04/28/19 04/28/19 History Sennosides-Docusate Sodium 1 tab PO BID #60 tablet 04/28/19 Rx [Senokot-S] traZODone HCL [Desyrel] 100 mg PO HS 04/28/19 04/28/19 History Allergies Allergy/AdvReac Type Severity Reaction Status Date / Time vancomycin Allergy Itching Verified 04/28/19 14:21 Physical Exam Vitals: Vital Signs Temp Pulse Resp BP Pulse Ox 04/28/19 15:39 59 L 16 102/59 99 04/28/19 15:30 60 16 100/56 99 04/28/19 15:15 61 16 96/53 97 04/28/19 15:00 78 16 104/56 100 04/28/19 14:53 98.2 F 96 16 111/60 96 04/28/19 11:54 98.6 F 73 16 140/81 97 Intake and Output 04/28/19 04/28/19 04/28/19 06:59 14:59 22:59 Intake Total 1701 Output Total 800 Balance 901 Intake: IV 1701 Output: Estimated Blood Loss 800 General: [non toxic], [no distress], [appears at stated age] Derm: [warm], [dry] Head: [atraumatic], [normocephalic], [symmetric] Eyes: [EOMI], [no lid lag], [anicteric sclera] Mouth: [no lip lesion], [mucus membranes moist] Cardiovascular: [S1S2 reg], [no murmur], [positive DP pulse bilateral], Lungs: [CTA bilateral], [no rhonchi, no rales] , [no accessory muscle use] Abdominal: [soft], [ nontender to palpation], [no guarding], [no appreciable organomegaly] Ext: [no gross muscle atrophy], [no edema], [right hip dressing clean dry and intact] Neuro: [no focal neuro deficits] Psych: [Alert], [oriented], [appropriate affect] Assessment and Plan Assessment: Assessment and Plan Severe right hip osteoarthritis post right hip replacement POD 0 Hyperlipidemia Management as per orthopedic surgery. Pain management with [place] or fentanyl. 2 doses of cefazolin. Continue lactated Ringer's at 100 mL/h. Follow CBC in the morning. Plans for home with rehab. September 2018 lipid panel shows total cholesterol 252 and LDL of 172. Plans: Dietary modification. Follow-up with PCP. Thank you for allowing us to participate in the care of this patient. Please call with any additional questions or concerns. DVT prophylaxis: [SCD boots] Discussed with: [Patient] Anticipated discharge: [Home] Anticipated discharge place: [1-2 days] A total of [30] minutes was spent on the care of this complex patient more than 50% of the time was spent in counseling and care coordination.
[2019-04-28] MEDS: ceFAZolin IN SWFI 2 GM/20 ML SYRINGE IVP SCH ×2 (17:50→22:55)
[2019-04-28] MEDS: HYDROmorphone 0.5 MG/0.5 ML SYRINGE IVP PRN (18:46)
[2019-04-28] MEDS: SENNOSIDES-DOCUSATE SODIUM 1 EACH TAB PO SCH (20:55)
[2019-04-29] MEDS: LACTATED RINGERS 1,000 ML IV SCH ×4 (00:27→12:02)
[2019-04-29] MEDS: HYDROcodone/APAP 5-325MG 1 EACH TAB PO PRN ×3 (05:46→21:47)
[2019-04-29] MEDS: MELOXICAM 7.5 MG TAB PO SCH (07:25)
[2019-04-29] MEDS: ASPIRIN 325 MG TAB PO SCH (07:25)
[2019-04-29 09:48] LABS: Basophils % (A) 0 %; Eosinophils % (A) 1 %; HCT 24.2 % (34.0-46.0); Lymphocytes # (A) 1.6 k/uL (1.0-4.8); Lymphocytes % (A) 19 %; MCH 29.8 pg (25.0-35.0); MCHC 32.8 g/dL (31.0-37.0); MCV 90.9 fL (80.0-100.0); Monocytes # (A) 0.4 k/uL (0-1.0); Monocytes % (A) 5 %; Neutrophils # (A) 6.1 k/uL (1.3-7.7); Neutrophils % (A) 75 %; Platelet Count 217 k/uL (150-450); RBC 2.66 m/uL (3.80-5.40); RDW 12.9 % (11.5-15.5); WBC 8.2 k/uL (3.8-10.6)
[2019-04-29 09:54] LABS: HGB 7.9 gm/dL (11.4-16.0)
[2019-04-29] MEDS: HYDROmorphone 0.5 MG/0.5 ML SYRINGE IVP PRN (10:50)
--- NOTE | 2019-04-29 11:05 | P.PN ---
Subjective Progress Note Date: 04/29/19 Principal diagnosis: Primary osteoarthritis right hip. Status post total right hip arthroplasty. This is a 63-year-old female who is postop day #1 status post total right hip arthroplasty. Her hemoglobin is 7.9 this morning. She reports no shortness of breath or lightheadedness. She has been up with physical therapy and did fairly well. She has no new complaints or concerns today. Vital signs are stable. Objective - Vital Signs Vital signs: Vital Signs Temp 98.1 F 04/29/19 06:45 Pulse 65 04/29/19 06:45 Resp 15 04/29/19 06:45 BP 93/60 04/29/19 06:45 Pulse Ox 92 L 04/29/19 06:45 Intake & Output 04/28/19 04/29/19 04/29/19 18:59 06:59 18:59 Intake Total 1701 1500 Output Total 800 650 Balance 901 850 Intake: IV 1701 Intake, IV Titration 1000 Amount Lactated Ringers 1,000 ml 1000 @ 100 mls/hr IV .Q10H SOFÍA Rx#:[id number] Oral 500 Output: Urine 650 Straight 650 Estimated Blood Loss 800 - Exam This is a pleasant 63-year-old female in no acute distress. She is alert and oriented 3. Exam of the right lower extremity reveals that her dressing is clean, dry and intact. There is no erythema, minimal swelling. She has full foot and ankle motion without difficulty or pain. Pedal pulses +2/4. Neurovascular status to the lower extremity is intact. - Labs CBC & Chem 7: 04/29/19 08:16 Labs: Abnormal Lab Results - Last 24 Hours (Table) 04/29/19 Range/Units 08:16 RBC 2.66 L (3.80-5.40) m/uL Hgb 7.9 L D (11.4-16.0) gm/dL Hct 24.2 L (34.0-46.0) % Assessment and Plan (1) Acute blood loss as cause of postoperative anemia Current Visit: Yes Status: Acute Code(s): D62 - ACUTE POSTHEMORRHAGIC ANEMIA SNOMED Code(s): 07660226842554045 (2) Osteoarthritis of right hip Current Visit: Yes Status: Acute Code(s): M16.11 - UNILATERAL PRIMARY OSTEOARTHRITIS, RIGHT HIP SNOMED Code(s): 885328914748881 (3) Status post total hip replacement, right Current Visit: Yes Status: Acute Code(s): Z96.641 - PRESENCE OF RIGHT ARTIFICIAL HIP JOINT SNOMED Code(s): 738882415336 Plan: The clinical findings are discussed with the patient. I discussed adding Feosol twice a day with meals. The patient is Sikh and will decline transfusion if recommended. Continue care. Possible discharge to home tomorrow if stable.
[2019-04-29] MEDS: FERROUS SULFATE 325 MG TAB PO SCH ×2 (12:01→17:32)
--- NOTE | 2019-04-29 12:41 | P.PN ---
Subjective Progress Note Date: 04/29/19 Principal diagnosis: hip pain patient was seen and examined. No acute events overnight. Patient reports pain well-controlled on current pain regimen.received 2 Dilaudid injections last night. Had some difficulty urinating initially but is now freely urinating. States that she has not passed gas or had a bowel movement yet. Hemoglobin 7.9 this morning, patient states that she is a Sikh and will not accept any blood. Objective - Vital Signs Vital signs: Vital Signs Temp 98.1 F 04/29/19 06:45 Pulse 65 04/29/19 06:45 Resp 15 04/29/19 06:45 BP 93/60 04/29/19 06:45 Pulse Ox 92 L 04/29/19 06:45 Intake & Output 04/28/19 04/29/19 04/29/19 18:59 06:59 18:59 Intake Total 1701 1500 Output Total 800 650 Balance 901 850 Intake: IV 1701 Intake, IV Titration 1000 Amount Lactated Ringers 1,000 ml 1000 @ 100 mls/hr IV .Q10H SOFÍA Rx#:[id number] Oral 500 Output: Urine 650 Straight 650 Estimated Blood Loss 800 - Exam General: [non toxic], [no distress], [appears at stated age] Derm: [warm], [dry] Head: [atraumatic], [normocephalic], [symmetric] Eyes: [EOMI], [no lid lag], [anicteric sclera] Mouth: [no lip lesion], [mucus membranes moist] Cardiovascular: [S1S2 reg], [no murmur], [positive DP pulse bilateral], Lungs: [CTA bilateral], [no rhonchi, no rales] , [no accessory muscle use] Abdominal: [soft], [ nontender to palpation], [no guarding], [no appreciable organomegaly] Ext: [no gross muscle atrophy], [no edema], [right hip dressing clean dry and intact] Neuro: [no focal neuro deficits] Psych: [Alert], [oriented], [appropriate affect] - Labs CBC & Chem 7: 04/29/19 08:16 Labs: Abnormal Lab Results - Last 24 Hours (Table) 04/29/19 Range/Units 08:16 RBC 2.66 L (3.80-5.40) m/uL Hgb 7.9 L D (11.4-16.0) gm/dL Hct 24.2 L (34.0-46.0) % Assessment and Plan Assessment: Assessment and Plan Hyperlipidemia Acute blood loss anemia Severe right hip osteoarthritis post right hip replacement POD 05 September 2018 lipid panel shows total cholesterol 252 and LDL of 172. Plans: Dietary modification. Follow-up with PCP. Hemoglobin 7.9. Unknown baseline. Plans: CBC tomorrow. No active signs of bleeding. Start iron supplementation. Management as per orthopedic surgery. Pain management with [place] or fentanyl. 2 doses of cefazolin. Continue lactated Ringer's at 100 mL/h. Follow CBC in the morning. Plans for home with rehab. Thank you for allowing us to participate in the care of this patient. Please call with any additional questions or concerns.
[2019-04-29] MEDS: SENNOSIDES-DOCUSATE SODIUM 1 EACH TAB PO SCH (21:42)
[2019-04-29] MEDS ORDERED: TEMAZEPAM 15 MG CAP PO PRN (22:00)
[2019-04-30] MEDS: LACTATED RINGERS 1,000 ML IV SCH (05:20)
[2019-04-30 08:04] VITALS: BP 139/77; PULSE 77; RESP 16; TEMP 99
[2019-04-30] MEDS: HYDROcodone/APAP 5-325MG 1 EACH TAB PO PRN ×2 (08:28→13:51)
[2019-04-30] MEDS: MELOXICAM 7.5 MG TAB PO SCH (08:29)
[2019-04-30] MEDS: ASPIRIN 325 MG TAB PO SCH (08:30)
[2019-04-30] MEDS: FERROUS SULFATE 325 MG TAB PO SCH (08:30)
--- NOTE | 2019-04-30 11:49 | P.DS ---
Providers Date of admission: 04/28/19 11:34 Expected date of discharge: 04/30/19 Attending physician: Tiago Cole Consults: 04/28/19 16:21 Consult Physician Routine Consulting Provider: Kay Lewis Consult Reason/Comments: medical management Do you want consulting provider notified?: Already Contacted Primary care physician: Kelsi Ling MD - Discharge Diagnosis(es) (1) Acute blood loss as cause of postoperative anemia Current Visit: Yes Status: Acute (2) Osteoarthritis of right hip Current Visit: Yes Status: Acute (3) Status post total hip replacement, right Current Visit: Yes Status: Acute Hospital Course: This is a 63-year-old female with known history of degenerative arthritis of the right hip. The patient presents for evaluation. After discussion and consideration patient elects to proceed with total hip arthroplasty. The patient is seen preoperatively by Dr. Ling and cleared for surgery. Patient is admitted to [facility] on 04/28/2019 for total hip arthroplasty. The procedures performed without complication or sequelae. The patient is doing well postoperatively. Labs and vital signs are stable on day of discharge. Her hemoglobin is 7.9. She was placed on iron. The patient is Jewish so would decline transfusion is recommended. On day of discharge patient's hip incision is healing well. There is minimal erythema. There is no drainage noted at this time. There is minimal soft tissue swelling to the hip and thigh. Patient has full foot and ankle motion without difficulty or pain. Neurovascular status to the right lower extremity is intact. Patient is discharged to home in good condition. Please see med rec for accurate list of home medications. Plan - Discharge Summary Discharge Rx Participant: Yes New Discharge Prescriptions: New HYDROcodone/APAP 5-325MG [[place] 5-325] 1 - 2 each PO Q4-6H PRN #50 tab PRN Reason: Pain Sennosides-Docusate Sodium [Senokot-S] 1 tab PO BID #60 tablet Aspirin 325 mg PO DAILY #1 tab Ferrous Sulfate [Feosol] 325 mg PO BID #20 tab No Action Acetaminophen/Diphenhydramine [Tylenol PM Extra Strength] 500 mg PO Q8HR PRN PRN Reason: Pain traZODone HCL [Desyrel] 100 mg PO HS Ibuprofen [Motrin] 800 mg PO TID PRN PRN Reason: Pain Discharge Medication List Acetaminophen/Diphenhydramine [Tylenol PM Extra Strength] 500 mg PO Q8HR PRN 04/28/19 [History] Aspirin 325 mg PO DAILY #1 tab 04/28/19 [Rx] HYDROcodone/APAP 5-325MG [[place] 5-325] 1 - 2 each PO Q4-6H PRN #50 tab 04/28/19 [Rx] Ibuprofen [Motrin] 800 mg PO TID PRN 04/28/19 [History] Sennosides-Docusate Sodium [Senokot-S] 1 tab PO BID #60 tablet 04/28/19 [Rx] traZODone HCL [Desyrel] 100 mg PO HS 04/28/19 [History] Ferrous Sulfate [Feosol] 325 mg PO BID #20 tab 04/30/19 [Rx] Follow up Appointment(s)/Referral(s): Alfreda May, PAC [PHYSICIAN CANDLE MOLDER] - 2 Weeks Activity/Diet/Wound Care/Special Instructions: May bear weight as tolerated with a walker. May shower if no drainage from incision. Attend outpatient physical therapy starting 05/02/19 at [facility] as scheduled prior to surgery. No need for home care. Discharge Disposition: HOME WITH HOME HEALTH SERVICES
--- NOTE | 2019-04-30 14:39 | CDI ---
Documentation Clarification Form Date: 04/30/2019 2:31:18 PM From: Jaky Conway CCS, CCDS Admit Date: 04/28/2019 11:34:00 AM Patient Name: Stacey Cruz Visit Number: [id number] Discharge Date: ATTENTION: The Clinical Documentation Specialists (CDI) and [facility] Coding Staff appreciate your assistance in clarifying documentation. Please respond to the clarification below the line at the bottom and electronically sign. The CDI & [facility] Coding staff will review the response and follow-up if needed. Please note: Queries are made part of the Legal Health Record. If you have any questions, please contact the author of this message via ITS. Dr. Tiago oCle: Acute blood loss as cause of postoperative anemia is documented in the 04/29 Orthopedic progress note & also in the Orthopedic Discharge Summary. Patients Admitting Diagnosis: Osteoarthritis of right hip Post-Operative Diagnosis: Same Procedure performed: Right total hip replacement History/Risk Factors: Fibromyalgia, Hyperlipidemia, Hypertension, Osteoarthritis, Spinal radiculopathy, chronic back pain, previous pelvic fracture 2017. Clinical Indicators: Patient is a Jehovah Witness & may decline a transfusion if recommended, eats a vegetarian diet. LAB: 04/29: RBC 2.66*, hgb 7.9*, Hct 24.2* Treatment: IV Kefzol, IV Zofran, po Feosol started 04/29, IV Dilaudid In order to accurately reflect this patients severity of illness, please clarify if the post-operative acute blood loss anemia is a complication of the patient's surgery: __X__ Yes ____ No Please clarify if the anemia is due to a particular cause. Other, please specify ____ Unable to determine (Last Revision: February 2019) Acute blood loss anemia was a result of the patient's surgery. No particular factor could be identified during the case, although I have documented in my operative note that she bled continuously throughout the case from the initial skin incision through to closure. ___ MTDD
== END 2019-04-30 14:47 | disposition home health service (06) | DRG 470 ==
LOC: 2ORMAIN 11:34 → 4SSUR 12:59
PROVIDERS: ADMIT Orthopaedic Surgery; ATTEND Orthopaedic Surgery
PROC: 0SR904A Replacement of Right Hip Joint with Ceramic on Polyethylene Synthetic Substitute, Uncemented, Open Approach (ICD-10-PCS; principal; 2019-04-28 12:30)
DX: M16.11 Unilateral primary osteoarthritis, right hip (principal); D62 Acute posthemorrhagic anemia; M96.810 Intraoperative hemorrhage and hematoma of a musculoskeletal structure complicating a musculoskeletal system procedure; E78.5 Hyperlipidemia, unspecified; I10 Essential (primary) hypertension; M79.7 Fibromyalgia; Z79.82 Long term (current) use of aspirin; Z87.81 Personal history of (healed) traumatic fracture; Z90.710 Acquired absence of both cervix and uterus; Z96.652 Presence of left artificial knee joint; Z98.1 Arthrodesis status; Z53.1 Procedure and treatment not carried out because of patient's decision for reasons of belief and group pressure; M54.16 Radiculopathy, lumbar region; G89.29 Other chronic pain; Z79.899 Other long term (current) drug therapy; M48.00 Spinal stenosis, site unspecified; Y84.8 Other medical procedures as the cause of abnormal reaction of the patient, or of later complication, without mention of misadventure at the time of the procedure
CPT/HCPCS: 73501; 85025; 88300

== ENCOUNTER → 2019-09-25 | Outpatient (CLI) | payer MEDICARE, OTHER ==
--- NOTE | 2019-09-25 15:23 | XR ---
Left hand HISTORY: Joint pain in fingers left hand 3 views of the left hand There is joint space loss, subchondral sclerosis, hypertrophic change at the carpometacarpal joint of the first digit. Bone mineralization is otherwise reduced. Alignment is maintained. No fracture or d islocation. Some spurring present at the interphalangeal joint of the first digit. IMPRESSION: Osteoarthritis.
[2019-09-25 20:40] LABS: Cyclic Citrull Pep IgG Unit <0.5 U/mL; Cyclic Citrullinated Pep IgG NEGATIVE (NEGATIVE)
[2019-09-26 11:56] LABS: ANA Pattern Homogeneous; ANA Pattern 2 Nucleolar
== END | disposition home or self-care (01) ==
LOC: LABWHC1 13:55
PROVIDERS: ATTEND Family Medicine
DX: M19.042 Primary osteoarthritis, left hand (principal); M54.5 Low back pain
CPT/HCPCS: 36415; 86038; 86039; 86200; 86431

== ENCOUNTER → 2019-10-10 | Outpatient (CLI) | payer MEDICARE, OTHER ==
[2019-10-10 14:35] LABS: Basophils % (A) 1 %; Eosinophils # (A) 0.1 k/uL (0-0.7); Eosinophils % (A) 2 %; HCT 37.1 % (34.0-46.0); HGB 12.4 gm/dL (11.4-16.0); Lymphocytes # (A) 1.5 k/uL (1.0-4.8); Lymphocytes % (A) 32 %; MCH 29.4 pg (25.0-35.0); MCHC 33.3 g/dL (31.0-37.0); MCV 88.1 fL (80.0-100.0); Mean Platelet Volume 6.7; Monocytes # (A) 0.3 k/uL (0-1.0); Monocytes % (A) 5 %; Neutrophils # (A) 2.7 k/uL (1.3-7.7); Neutrophils % (A) 59 %; Platelet Count 243 k/uL (150-450); RBC 4.21 m/uL (3.80-5.40); RDW 15.3 % (11.5-15.5); WBC 4.6 k/uL (3.8-10.6)
[2019-10-10 15:25] LABS: Erythrocyte Sedimentation Rate 12 mm/hr (0-20)
[2019-10-10 19:47] LABS: Anti-DNA, DS unit <1.0 IU/mL; Anti-Smith Ab Interp NEGATIVE (NEGATIVE); DNA Double-Stranded NEGATIVE (NEGATIVE)
== END | disposition home or self-care (01) ==
LOC: LABWHC1 13:35
PROVIDERS: ATTEND Family Medicine
DX: M25.542 Pain in joints of left hand (principal); R53.83 Other fatigue
CPT/HCPCS: 36415; 82306; 82607; 85025; 85652; 86141; 86225; 86235

== ENCOUNTER 2023-02-28 06:13 | Inpatient (IN) | payer MEDICARE, OTHER ==
[2023-02-21 15:58] VITALS: BMI 24.0
[~2023-02-28 06:13] MED LIST changes: -ACETAMINOPHEN TAB 500 MG TAB PO ONE; -DEXAMETHASONE SOD PHOSPHATE 10 MG/ML 1 ML VIAL IV ONE; -LIDOCAINE 1% 20 ML VIAL (10MG/ML) FOR IV START INTRADERMA PRN; -MELOXICAM 7.5 MG TAB PO ONE; -MIDAZOLAM 2 MG/2 ML VIAL IV PRN; -ONDANSETRON 4 MG/2 ML VIAL IVP ONE; -TRANEXAMIC ACID 1,000 MG in SODIUM CHLORIDE 0.9% 100 ML IVPB ONE; +ceFAZolin 1,000 MG in SODIUM CHLORIDE 0.9% IRRIGATIO 1,000 ML IRRIGATION PRN; -ceFAZolin IN SWFI 2 GM/20 ML SYRINGE IVP ONE
[2023-02-28] MEDS ORDERED: DEXAMETHASONE SOD PHOSPHATE 4 MG/ML 1 ML VIAL IV ONE (06:17)
[2023-02-28] MEDS ORDERED: ONDANSETRON 4 MG/2 ML VIAL IVP ONE (06:17)
[2023-02-28] MEDS ORDERED: LIDOCAINE 1% (10MG/ML) FOR IV START INTRADERMA PRN (06:17)
[2023-02-28] MEDS: LACTATED RINGERS 1,000 ML IV SCH (06:47)
[2023-02-28] MEDS ORDERED: ePHEDrine 50 MG/ML 1 ML VIAL ONE (07:25)
[2023-02-28] MEDS ORDERED: PHENYLEPHRINE-0.9% NACL SYG 1,000 MCG/10 ML SYRINGE ONE (07:25)
[2023-02-28] MEDS ORDERED: PROPOFOL 10 MG/ML 20 ML VIAL IV ONE (07:25)
[2023-02-28] MEDS ORDERED: LIDOCAINE 2% INJ 20 MG/ML (2 ML VIAL) ONE (07:25)
[2023-02-28] MEDS ORDERED: fentaNYL (PF) 50 MCG/ML 2 ML AMP ONE (07:25)
[2023-02-28] MEDS ORDERED: MIDAZOLAM 2 MG/2 ML VIAL ONE (07:25)
[2023-02-28] MEDS ORDERED: SUCCINYLCHOLINE CHLORIDE 200 MG/10 ML VIAL IV ONE (07:25)
[2023-02-28] MEDS ORDERED: LIDOCAINE 0.5%-EPI 1:200,000 50 ML VIAL SQ ONE (07:30)
[2023-02-28] MEDS ORDERED: THROMBIN (BOVINE) 5,000 UNIT VIAL TOPICAL ONE (07:30)
[2023-02-28] MEDS ORDERED: GELATIN SPONGE,ABSORB (LARGE) 1 EACH SPONGE TOPICAL ONE (07:30)
[2023-02-28] MEDS ORDERED: LACTATED RINGERS 1,000 ML IV ONE (09:04)
[2023-02-28] MEDS ORDERED: MAGNESIUM HYDROXIDE 2,400 MG/10 ML CUP PO PRN ×2 (11:06)
[2023-02-28] MEDS ORDERED: HYDROmorphone 0.5 MG/0.5 ML SYRINGE IVP PRN (11:06)
[2023-02-28] MEDS ORDERED: ONDANSETRON 4 MG/2 ML VIAL IVP PRN (11:06)
[2023-02-28] MEDS ORDERED: BENZOCAINE/MENTHOL LOZENG 1 EACH LOZENGE MUCOUS MEM PRN (11:06)
[2023-02-28] MEDS ORDERED: EZETIMIBE 10 MG TAB PO PRN (11:09)
--- NOTE | 2023-02-28 11:22 | P.OP ---
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 Severe spinal stenosis L1-2 Spinal stenosis T12-L1 History of prior decompression fusion L2 to S1 with retained hardware L2-3 Lower extremity radiculopathy Neurogenic claudication Lower showing weakness Postoperative Diagnosis: Same Procedure: Removal of hardware deep, L2-3 Laminectomy and decompression with partial medial facetectomy and bilateral foraminotomy L1-2, T12-L1 Posterior lateral decompression and fusion T11 12 ,T12-L1 and L1-L2 Use of CT guided navigation for placement of screws at T11-T12 and L1 for fusion Extension of fusion to prior establish fusion from L2 to S1 with extension to T11 Local autogenous bone grafting Harvesting of bone marrow aspirate for supplementing local otitis bone graft and other bone graft extenders Use of Cell Saver Use of bone graft extenders Use of neuro monitoring Surgeon: Dr. Quijano Substation Inspector: Cedric Anand is present throughout the entire the case persistence during positioning, dissection, exposure, visualization, and all crucial elements of the case as well as closure. Anesthesia: General anesthesia per Dr. Becerril Estimated blood loss: Approximately 400 mL with 200 given back through Cell Saver Complications: None apparent Components implanted: K2M Leonardo cannulated pedicle screws measuring 5.5 and 6.5 mm with 2 rods and we removed Screws and rods from prior Leonardo screws at L2 and L3 retaining the prior L2 and L3 screws bilaterally Disposition: To recovery room in good stable condition. OPERATIVE INDICATIONS The patient has had long-standing issues in their lower back and lower extremities. She has been through a number of surgeries at her lumbar spine with good results overall. Approximately 6 years ago she had surgery for decompression with extension of fusion at L2-3. She had done very well with this. However over the past year she's been developing increasing issues and problems in her back and torqued her lower extremities. She's been having severe worsening over the past several months. She does not have severe adjacent level degeneration with progressive degeneration and stenosis at L1-2 which correlated well with her low back and lower extremity symptoms. The patient has been through conservative treatment. She is not having lasting benefit despite aggressive conservative treatment. She is found have significant stenosis at T12-L1 and L1-2. We discussed various treatment options including surgery, and the patient wishes to proceed with surgery we discussed the need for extending her fusion in addition to decompression. I felt that she would have instability and would likely have the best chance of maintaining stability and structural alignment with extension to the fusion to T11 level at a neutral vertebra. We discussed the risk, patient's alternatives and benefits of surgery including but not limited to, risk of bleeding risk of infection, risk of need for further surgery, risk of decreased, loss of motion, muscle function, malunion nonunion, hardware failure, nerve damage, paralysis, heart attack, blindness and . OPERATIVE SUMMARY After discussing all the risks, patient alternatives and benefits at length, the patient elected to proceed with surgical intervention, signed informed consent, and presented for their procedure. The patient was seen and examined in the preoperative holding area and the surgical site was marked. The patient was given antibiotics and brought to the operating room. The patient was sedated and intubated by anesthesia in standard fashion. The patient was positioned on to the operating room table in a prone position on the appropriate frame which was well-padded and well molded. We were careful to pad any bony prominences and pressure points. We were careful to maintain the patient's cervical spine and good neutral alignment and position throughout. The patient was prepped and draped in a normal standard fashion. An appropriate timeout and keystone protocol performed. We were able to proceed with the surgery. The local wound area was infiltrated with local anesthetic. An incision was made at the midline longitudinally over the appropriate levels utilizing the superior aspect of her prior incision and extending it cephalad. Dissection was taken down subcutaneously to the level of the fascia which was split midline. Dissection was taken over the lamina bilaterally over the facet joints and to the transverse processes at L1, and up to T11. I was able to visualize the hardware at L2 and L3 as well. Intraoperative x-ray was taken which showed a marker at the appropriate level. As able to expose the true edge processes and then prepare for the appropriate CT guidance image guidance Ziehm intraoperatively. We prepared the area appropriately and attached the tracking device solidly over the spinous process at L1. We were then able to provide the appropriate draping and do appropriate spin with anesthesia monitoring the airway appropriately. With this been completely we had excellent imaging of the operative levels from T11 to L3. With the appropriate level positively confirmed, we were able to proceed with placement of the pedicle holes and screws. The patient had all their twitches back. The wound was copiously irrigated and suctioned dry as had been done periodically throughout the case. Screw holes were established similarly at each level. I was able to use the guidance track device and a Jamshidi needle to establish the starting holes and pedicle holes at T11-T12 and L1 bilaterally. These were placed under CT image guidance and checked with final fluoroscopic guidance. As able place the wires appropriately in each level and all had excellent alignment and position. I was able to use these holes to place the appropriate size screw and good alignment and good position with good bony purchase. This was done under C-arm guidance and found to be in excellent alignment and position at T11-T12 and L1 bilaterally. When the screws were inserted there were stimulated, and found to have no stimulation at 20 mA. the L2 and L3 screws did not have any stimulation. I was able to expose the L2 and L3 screws and remove the Screws and the rods appropriately there examined and found to be in total the screws were solid and I felt that we could still use the same screw at those levels. I removed the rods and the Screws and chose to use the pedicle screws at L2 and L3. I was able to turn my attention to the decompression decompression was performed with a combination of rongeurs, curettes, Kerrison rongeurs and a ball-tip feeler. All of the bone that was removed was stripped and morcellized for use as autogenous bone graft later in the case. I was able to obtain good central decompression as well as wide bilateral foraminal decompression. There is no evidence of dural tear or leak. Good hemostasis was maintained. The wound was irrigated and suctioned dry. I performed a complete facetectomy at the appropriate level of L1-2 and T12-L1. All bone that was removed was saved for local autogenous bone grafting. No was made of severe central and bilateral foraminal stenosis particularly at L1-2 level. I was able get excellent decompression at that area and good unroofing of the dura. I also provided excellent decompression at T12-L1. I do not feel that there was significant stenosis at T11 12. With excellent decompression accomplished was no evidence of any dural tear or leak and good hemostasis was maintained. The wound was irrigated and suctioned dry. With the hardware intact, intraoperative x-ray was again taken which showed good alignment and position of the hardware at the appropriate levels. We were then able to measure, contour and place the rods and appropriate hardware bilaterally. I was able to place capcrews, tighten them down, and torque them off appropriately. I was then able to decorticate the transverse processes and lateral margins of the posterior elements for placement of bone graft from T11 to L3. With this intact I was able to place the local autogenous bone graft with additional bone graft enhancer as necessary into the posterior lateral gutters bilaterally. With the bone graft intact, a stable construct, and good decompression at the appropriate levels, we were able to proceed with closure. Good hemostasis was maintained. There is no evidence of dural tear or leak. The fascia was closed for a watertight closure. The subcutaneous tissue was closed over a superficial drain. The subcuticular tissue was closed with absorbable suture. The wound was cleaned and dried and dressed with the appropriate dressing. The drapes were broken down. The patient was gently rolled back onto their hospital bed being careful to maintain their cervical spine and good neutral alignment and position. They were woken up by anesthesia, extubated, and brought to the recovery room in good stable condition. The patient will be admitted to the hospital for appropriate postoperative care, medical management and monitoring. We will continue to follow them closely about the postoperative course.
--- NOTE | 2023-02-28 11:33 | FL ---
EXAMINATION TYPE: FL guidance operating room DATE OF EXAM: 02/28/2023 HISTORY: Fluoroscopy time Total dose area product (DAP) ): [id number] IMPRESSION: 1. Fluoroscopy time.
[2023-02-28] MEDS: HYDROmorphone 0.5 MG/0.5 ML SYRINGE IVP PRN ×2 (11:36→12:54)
[2023-02-28] MEDS ORDERED: SODIUM CHLORIDE 0.9% 1,000 ML IV ONE (11:44)
[2023-02-28] MEDS: HYDROcodone/APAP 5-325MG 1 EACH TAB PO PRN ×2 (13:29→17:59)
[2023-02-28] MEDS: SODIUM CHLORIDE 0.9% 1,000 ML IV SCH ×2 (13:31→23:17)
[2023-02-28] MEDS: HYDROmorphone 1 MG/ML 1 ML SYRINGE IVP PRN ×2 (15:01→21:47)
[2023-02-28] MEDS: traZODone HCL 100 MG TAB PO SCH (19:46)
[2023-02-28] MEDS: CYCLOBENZAPRINE 10 MG TAB PO PRN (19:46)
[2023-03-01] MEDS: LACTATED RINGERS 1,000 ML IV SCH (00:34)
[2023-03-01] MEDS: HYDROmorphone 1 MG/ML 1 ML SYRINGE IVP PRN ×3 (03:42→16:09)
[2023-03-01 06:09] LABS: Basophils % (A) 0 %; Eosinophils # (A) 0.1 k/uL (0-0.7); Eosinophils % (A) 1 %; HCT 30.1 % (34.0-46.0); Lymphocytes # (A) 1.1 k/uL (1.0-4.8); Lymphocytes % (A) 17 %; MCH 31.5 pg (25.0-35.0); MCHC 33.4 g/dL (31.0-37.0); MCV 94.5 fL (80.0-100.0); Mean Platelet Volume 7.7; Monocytes # (A) 0.3 k/uL (0-1.0); Monocytes % (A) 4 %; Neutrophils # (A) 5.3 k/uL (1.3-7.7); Neutrophils % (A) 78 %; Platelet Count 171 k/uL (150-450); RBC 3.19 m/uL (3.80-5.40); RDW 12.8 % (11.5-15.5); WBC 6.8 k/uL (3.8-10.6)
[2023-03-01 06:22] LABS: African American GFR (CKD) >90 (>60 ml/min/1.73 sqM); Anion Gap 5 mmol/L; Blood Urea Nitrogen 20 mg/dL (7-17); Calcium 7.9 mg/dL (8.4-10.2); Carbon Dioxide 28 mmol/L (22-30); Chloride 99 mmol/L (98-107); Glucose 106 mg/dL (74-99); Non-African American GFR(CKD) >90 (>60 ml/min/1.73 sqM); Potassium 4.1 mmol/L (3.5-5.1); Sodium 132 mmol/L (137-145)
[2023-03-01] MEDS: HYDROcodone/APAP 7.5-325MG 1 EACH TAB PO PRN ×2 (06:40→20:22)
[2023-03-01] MEDS: CYANOCOBALAMIN 500 MCG TAB PO SCH (08:23)
[2023-03-01] MEDS: SENNOSIDES-DOCUSATE SODIUM 1 EACH TAB PO SCH (08:23)
--- NOTE | 2023-03-01 09:10 | P.PN ---
Progress Note - Text Progress Note Date: 03/01/23 Postoperative day #1 Patient is seen and examined today at bedside. The patient has some pain around the surgical site as expected. Pain is being controlled with medication. She was able to ambulate in the hallway this morning with therapy standing by. She is tolerating her regular diet. Physical Exam Afebrile with stable vital signs Abdomen is soft nontender. Chest has good excursion deep and space expiration The incision site is clean dry and intact. No erythema there is no purulence. Extremities have not had neurologic change from prior to surgery. She has sustained dorsal flexion plantar flexion and EHL. She is able to flex her hips and knees. Calves and thighs were soft nontender without evidence of DVT. Assessment/Plan Postoperative day #1 status post open decompression fusion T11 to L2 with history of prior fusion from L2 to S1 Severe adjacent level degeneration and stenosis L1-2 with stenosis T12-L1 status post decompression Patient is progressing as expected from the surgery. She is moving very well in this been able to ambulate. She is comfortable with her medications so far. We will see how she does that she continues to transition off the IV medications pectorals. She may need to increase her oral dose when she discharged home. She feels may be possible for home tomorrow. We will continue to increase the patient's mobilization with therapy. We will continue pain control with oral or IV medications. We'll continue to follow patient closely.
[2023-03-01] MEDS: SODIUM CHLORIDE 0.9% 1,000 ML IV SCH (16:31)
[2023-03-01] MEDS: traZODone HCL 100 MG TAB PO SCH (20:22)
[2023-03-02] MEDS: SODIUM CHLORIDE 0.9% 1,000 ML IV SCH (04:10)
[2023-03-02] MEDS: LACTATED RINGERS 1,000 ML IV SCH (04:11)
[2023-03-02 04:15] VITALS: RESP 18
[2023-03-02] MEDS: HYDROmorphone 1 MG/ML 1 ML SYRINGE IVP PRN (04:41)
[2023-03-02] MEDS: CYCLOBENZAPRINE 10 MG TAB PO PRN (04:42)
[2023-03-02] MEDS: HYDROcodone/APAP 7.5-325MG 1 EACH TAB PO PRN ×2 (06:55→11:56)
--- NOTE | 2023-03-02 07:45 | P.DS ---
Providers Date of admission: 03/01/23 07:18 Attending physician: Loretta Quijano Primary care physician: Stated None Hospital Course: The patient presented on the day of admission as per their operative note. She had significant spinal stenosis above her prior fusion and underwent decompression and fusion from T11 to L2 to connect with her prior fusion from L2 to S1. The patient feels her legs are doing better. She is having less numbness tingling. Her pain is controlled with oral medications. She is been ambulatory in the hallways. She is voiding freely and passing gas and tolerating a regular diet. Physical Exam The incision site is clean dry and intact. There is no erythema no drainage. There is no purulence no evidence of infection. The drain is discontinued and there is no active drainage. Abdomen soft and nontender. Chest has good excursion with deep inspiration and expiration. The patient has active and passive range of motion intact at the upper and lower extremities. There is no acute change in neurologic status. She has sustained dorsiflexion plantar flexion and EHL intact. Hospital Course The patient has been making good progress postoperatively. She had evidence of acute blood loss post operative anemia which was an expected blood loss from her procedure. It is stable and not requiring any further active treatment. They have completed the prophylactic antibiotics without any signs or symptoms of infection. The patient has been able to advance their diet, and is tolerating diet adequately. The pain was initially controlled with IV medications and is now controlled appropriately with oral medications. The patient has been able to increase their mobilization. The patient has progressed appropriately. I think they are in good stable condition for discharge today. She should use her brace whenever she is doing activity or ambulating. They will be sent home with appropriate prescriptions. I answered their questions to the best of my ability in a language that they can understand and they are agreeable with the plan. They will follow up as directed in approximately 2 weeks or sooner if she having problems. She has her pain medicine from Dr. Trinidad and they have planned for continue her pain med ications at home. Patient Condition at Discharge: Good Plan - Discharge Summary Discharge Rx Participant: No New Discharge Prescriptions: No Action traZODone HCL [Desyrel] 100 mg PO HS Ibuprofen [Motrin Ib] 200 mg PO DIRECTED PRN PRN Reason: Pain Hydrocodone/Acetaminophen [Hydrocodone/Acetaminophen 7.5-325] 1 tab PO TID PRN PRN Reason: Pain Ezetimibe [Zetia] 10 mg PO DAILY PRN PRN Reason: "Depending on what I eat." Cyanocobalamin (Vitamin B-12) [Vitamin B-12] 1,000 mcg PO DAILY Discharge Medication List traZODone HCL [Desyrel] 100 mg PO HS 04/28/19 [History] Cyanocobalamin (Vitamin B-12) [Vitamin B-12] 1,000 mcg PO DAILY 02/21/23 [History] Ezetimibe [Zetia] 10 mg PO DAILY PRN 02/21/23 [History] Hydrocodone/Acetaminophen [Hydrocodone/Acetaminophen 7.5-325] 1 tab PO TID PRN 02/21/23 [History] Ibuprofen [Motrin Ib] 200 mg PO DIRECTED PRN 02/21/23 [History] Follow up Appointment(s)/Referral(s): Loretta Quijano, [Doctor of Osteopathic Medicine] - 2 Weeks Activity/Diet/Wound Care/Special Instructions: Keep site clean. May shower with waterproof Tegaderm intact. Do not soak in a tub. After 96 hours postoperatively, patient May remove dressing and then may shower with area uncovered. Leave glue intact and allow it to fray off on its own. Use LSO brace when ambulating or during any activities. May remove in bed and while sitting with good support behind her back With the brace on, May ambulate lightly as tolerated. Avoid heavy or rigorous activity. No repetitive bending twisting or lifting. No overhead work. Discharge Disposition: HOME SELF-CARE
[2023-03-02 07:58] VITALS: BP 104/66; PULSE 83; TEMP 97.9
[2023-03-02] MEDS: CYANOCOBALAMIN 500 MCG TAB PO SCH (10:03)
[2023-03-02] MEDS: SENNOSIDES-DOCUSATE SODIUM 1 EACH TAB PO SCH (10:03)
== END 2023-03-02 12:08 | disposition home or self-care (01) | DRG 457 ==
LOC: OR 06:13 → 4SSUR 13:16 → OR 03-01 07:18 → 4SSUR 03-01 07:18
PROVIDERS: ADMIT Orthopaedic Surgery Orthopaedic Surgery of the Spine; ATTEND Orthopaedic Surgery Orthopaedic Surgery of the Spine
PROC: 0SP00AZ Removal of Interbody Fusion Device from Lumbar Vertebral Joint, Open Approach (ICD-10-PCS; 2023-02-28)
PROC: 01NB0ZZ Release Lumbar Nerve, Open Approach (ICD-10-PCS; 2023-02-28)
PROC: 0SG00AJ Fusion of Lumbar Vertebral Joint with Interbody Fusion Device, Posterior Approach, Anterior Column, Open Approach (ICD-10-PCS; 2023-02-28)
PROC: 0RGA0AJ Fusion of Thoracolumbar Vertebral Joint with Interbody Fusion Device, Posterior Approach, Anterior Column, Open Approach (ICD-10-PCS; 2023-02-28)
PROC: 0QU007Z Supplement Lumbar Vertebra with Autologous Tissue Substitute, Open Approach (ICD-10-PCS; 2023-02-28)
PROC: 0PR Upper Bones, Replacement (ICD-10-PCS; 2023-02-28)
PROC: 07DT3ZZ Extraction of Bone Marrow, Percutaneous Approach (ICD-10-PCS; 2023-02-28)
PROC: 30233N0 Transfusion of Autologous Red Blood Cells into Peripheral Vein, Percutaneous Approach (ICD-10-PCS; 2023-02-28)
PROC: 0RG60AJ Fusion of Thoracic Vertebral Joint with Interbody Fusion Device, Posterior Approach, Anterior Column, Open Approach (ICD-10-PCS; principal; 2023-02-28 07:30)
DX: M51.16 Intervertebral disc disorders with radiculopathy, lumbar region (principal); D62 Acute posthemorrhagic anemia; M41.56 Other secondary scoliosis, lumbar region; M48.05 Spinal stenosis, thoracolumbar region; M48.062 Spinal stenosis, lumbar region with neurogenic claudication; E66.3 Overweight; M51.36 Other intervertebral disc degeneration, lumbar region; M47.817 Spondylosis without myelopathy or radiculopathy, lumbosacral region; M46.1 Sacroiliitis, not elsewhere classified; Z96.641 Presence of right artificial hip joint; Z96.652 Presence of left artificial knee joint; Z98.1 Arthrodesis status; Z88.1 Allergy status to other antibiotic agents; Z79.899 Other long term (current) drug therapy; Z79.891 Long term (current) use of opiate analgesic; Z79.1 Long term (current) use of non-steroidal anti-inflammatories (NSAID); Z68.24 Body mass index [BMI] 24.0-24.9, adult
CPT/HCPCS: 72100; 80048; 85025; 94760

== ENCOUNTER → 2025-06-04 | Outpatient (CLI) | payer MEDICARE, OTHER ==
[2025-06-04 12:54] LABS: INR 0.9 (<1.2); Partial Thromboplastin Time 23.9 sec (22.0-30.0); Prothrombin Time 9.9 sec (10.0-12.5)
--- NOTE | 2025-06-04 14:31 | XR ---
EXAMINATION TYPE: XR chest 2V DATE OF EXAM: 06/04/2025 2:26 PM COMPARISON: Chest radiographs from 10/25/2017 TECHNIQUE: XR chest 2V Frontal and lateral views of the chest. CLINICAL INDICATION:Female, 69 years old with history of Z01.818ENCOUNTER FOR OTHER PREPROCEDURAL EXA MINATION; FINDINGS: Lungs/Pleura: There is no evidence of pleural effusion, focal consolidation, or pneumothorax. Pulmonary vascularity: Unremarkable. Heart/mediastinum: Cardiomediastinal silhouette is unremarkable. Musculoskeletal: Multiple level degenerative disc disease changes seen throughout the spine. Cervical and lower thoracolumbar fusion hardware demonstrated. IMPRESSION: No acute cardiopulmonary disease/process. [facility], , 06/04/2025 2:29 PM
[2025-06-04 15:19] LABS: Basophils # (A) 0.06 X 10*3/uL (0.00-0.10); Basophils % (A) 1.2 %; Eosinophils # (A) 0.10 X 10*3/uL (0.04-0.35); Eosinophils % (A) 2.1 %; HCT 39.3 % (37.2-46.3); HGB 12.7 g/dL (12.0-15.0); Immature Grans, Automated 0.20 %; Lymphocytes # (A) 1.80 X 10*3/uL (0.90-5.00); Lymphocytes % (A) 37.3 %; MCH 30.2 pg (27.0-32.0); MCHC 32.3 g/dL (32.0-37.0); MCV 93.3 FL (80.0-97.0); Monocytes # (A) 0.33 X 10*3/uL (0.20-1.00); Monocytes % (A) 6.8 %; NRBC Per 100 WBC 0 X 10*3/uL (0.00-0.01); Neutrophils # (A) 2.52 X 10*3/uL (1.80-7.70); Neutrophils % (A) 52.4 %; Platelet Count 264 X 10*3/uL (140-440); RBC 4.21 X 10*6/uL (4.10-5.20); RDW 12.6 % (11.5-14.5); WBC 4.82 X 10*3/uL (4.50-10.00)
[2025-06-04 16:14] LABS: Anion Gap 11.50 mmol/L (4.00-12.00); BUN/Creat Ratio 21.57 Ratio (12.00-20.00); Blood Urea Nitrogen 15.1 mg/dL (9.0-27.0); Calcium 9.3 mg/dL (8.7-10.3); Carbon Dioxide 26.5 mmol/L (21.6-31.8); Chloride 101 mmol/L (96-109); Glucose 85 mg/dL (70-110); Potassium 4.5 mmol/L (3.5-5.5); Sodium 139 mmol/L (135-145)
[2025-06-04 21:05] LABS: Bilirubin,Urine Negative (Negative); Blood,Urine Negative (Negative); Color,Urine Yellow (Yellow); Ketones,Urine Negative (Negative); Nitrite,Urine Positive (Negative); PH, Urine 8.0; Specific Gravity,Urine 1.007 (1.001-1.030); Urobilinogen,Urine 0.2 E.U./DL
[2025-06-04 21:30] LABS: Bacteria,Urine 3+ (None Seen); Yeast (UA) Present (None Seen)
== END | disposition home or self-care (01) ==
LOC: LABPAT 11:24
PROVIDERS: ATTEND Orthopaedic Surgery Orthopaedic Surgery of the Spine
DX: Z01.818 Encounter for other preprocedural examination (principal); Z22.322 Carrier or suspected carrier of Methicillin resistant Staphylococcus aureus; M48.02 Spinal stenosis, cervical region
CPT/HCPCS: 71046; 80048; 81001; 85025; 85610; 85730; 87070